=== PATIENT | male | born 1995 | race African-American/Black ===

== ENCOUNTER 2018-03-05 21:39 | Inpatient (IN) ==
--- NOTE | 2018-03-06 03:39 | ED ---
HPI General Chief complaint: Psychiatric Symptoms Stated complaint: Chest Pain Time Seen by Provider: 03/06/18 03:34 Source: patient Mode of arrival: ambulatory Limitations: no limitations History of Present Illness HPI narrative: 22-year-old male with history of depression and anxiety presents emergency department voluntarily for psychiatric evaluation. Patient was found this evening by his with a knife to his chest. He was ready to kill himself. She stopped him and brought him to the emergency department. Patient states he has had a lot of life stressors lately. His daughter was taken away from him. He lost his grandmother. He feels like he has nobody to turn to. He wakes up not wanting to live. He smokes marijuana. He denies any other illicit drug use. He has no other symptoms to report. Related Data Home Medications Medication Instructions Recorded Confirmed bupropion HCl [Wellbutrin SR] 150 mg PO BID 03/06/18 03/06/18 buspirone 5 mg PO DAILY 03/06/18 03/06/18 mirtazapine [Remeron] 15 mg PO DAILY 03/06/18 03/06/18 Allergies Allergy/AdvReac Type Severity Reaction Status Date / Time divalproex sodium Allergy Itching Verified 03/06/18 03:21 [[facility] Review of Systems ROS: all other systems reviewed are negative PMFSH Medical History Medical History No significant past surgical history (Acute) Anxiety (Acute) Insomnia (Acute) Depression (Acute) Social History Social History Substance History: Active Abuse Second Hand Smoke Exposure: Yes Smoking Status: Heavy tobacco smoker Tobacco Type: Cigarettes How Often Do You Have a Drink Containing Alcohol: Never Recent Travel in [place] within the Last 8 Weeks: No Recent Out of Country Travel within the Last 8 Weeks: No Substance Abuse Detail Marijuana: Substance Use Status: Active Route Used Substance Abuse: Inhalation Reason for Use: Calm Down and Sleep Immunization History Tetanus Immunization: >5 Years Hx Influenza Vaccine This Season: No Exam Narrative Exam Narrative: GENERAL: Well-nourished male patient, in no acute distress SKIN: Focused skin assessment warm/dry. HEAD: Atraumatic. Normocephalic. EYES: Pupils equal and round. No scleral icterus. No injection or drainage. ENT: No nasal bleeding or discharge. Mucous membranes pink and moist. NECK: Trachea midline. No JVD. CARDIOVASCULAR: Regular rate and rhythm. No murmur appreciated. RESPIRATORY: No accessory muscle use. Clear to auscultation. Breath sounds equal bilaterally. GASTROINTESTINAL: Abdomen soft, non-tender, nondistended. Hepatic and splenic margins not palpable. MUSCULOSKELETAL: No obvious deformities. No clubbing. No cyanosis. No edema. NEUROLOGICAL: Awake and alert. No obvious cranial nerve deficits. Motor grossly within normal limits. Normal speech. PSYCHIATRIC: Flat affect, depressed mood Course Initial Documented Vital Signs Temperature 98 F 03/05/18 21:52 Pulse Rate 80 03/05/18 21:52 Respiratory Rate 16 03/05/18 21:52 Blood Pressure 133/74 03/05/18 21:52 Pulse Oximetry 100 03/05/18 21:52 Last Documented Vital Signs Temperature 98 F 03/05/18 21:52 Pulse Rate 80 03/05/18 21:52 Respiratory Rate 16 03/06/18 03:25 Blood Pressure 133/74 03/05/18 21:52 Pulse Oximetry 100 03/05/18 21:52 Medical Decision Making TIFFANIE Attestation TIFFANIE supervised visit: Yes MDM Narrative Medical decision making narrative: 22-year-old male presents emergency department voluntarily for psychiatric evaluation. Patient has been having active suicidal thoughts with a near attempt tonight. This was stopped by his . He has no physical injury to his body. Lab work is ordered for medical clearance. Patient wants help at this time and he will remains voluntary. Pending no acute lab abnormality, patient is medically cleared to undergo psychiatric screening for further evaluation and disposition. Mental health screening discussed with the patient. Psychiatric screen ordered. Medical Screen Exam Complete: Yes Emergency Medical Condition: Yes Differential Diagnosis Differential Diagnosis: Disorder versus adjustment reaction disorder Discharge Plan Discharge Disposition Patient Disposition: 30 Still Patient Discharge Condition Condition: Stable Discharge Details Diagnosis: Depression with suicidal ideation Physicians Team ED Provider: Diane Sargent ED Midlevel Provider: Marce Tapia Rxs /Orders / Referrals /Forms Prescriptions: No Action buspirone 5 mg Tablet 5 mg PO DAILY RF: 0 bupropion HCl [Wellbutrin SR] 150 mg Tablet Extended Release 12 Hr 150 mg PO BID RF: 0 mirtazapine [Remeron] 15 mg Tablet 15 mg PO DAILY RF: 0 Discharge Interventions Interventions: Vital Signs Last Done: 03/06/18 03:25 Status ED Status: With Doctor
[2018-03-06 03:56] LABS: Baso % (Auto) 0.8 % (0.0-2.0); Eos # (Auto) 0.2 th/mm3 (0.0-0.4); Eos % (Auto) 3.3 % (0.0-4.0); Hemoglobin 13.9 gm/dL (13.0-17.0); Lymph % (Auto) 34.7 % (9.0-44.0); Mean Corpuscular Hemoglobin 26.4 pg (27.0-34.0); Mean Platelet Volume 8.9 fL (7.0-11.0); Mono # (Auto) 0.8 th/mm3 (0.0-0.9); Mono % (Auto) 13.3 % (0.0-8.0); Neut # (Auto) 2.8 th/mm3 (1.8-7.7); Neut % (Auto) 47.9 % (16.0-70.0); Platelet Count 250 th/mm3 (150-450); Red Blood Count 5.25 mil/mm3 (4.50-5.90); Red Cell Distribution Width 13.6 % (11.6-17.2); White Blood Count 5.8 th/mm3 (4.0-11.0)
[2018-03-06 04:04] LABS: Amphetamine Screen,Urine Neg (Neg); Barbiturate Screen,Urine Neg (Neg); Cannabinoid Screen,Urine Pos (Neg); Cocaine Screen,Urine Neg (Neg)
[2018-03-06 04:08] LABS: Opiate Screen,Urine Neg (Neg)
[2018-03-06 04:11] LABS: Anion Gap 7 meq/L (5-15); Blood Urea Nitrogen 15 mg/dL (7-18); Calcium 8.8 mg/dL (8.5-10.1); Carbon Dioxide 27.6 meq/L (21.0-32.0); Chloride 106 meq/L (98-107); Glomerular Filtration Rate 74 mL/min (>89); Glucose,Random 91 mg/dL (74-106); Potassium 3.9 meq/L (3.5-5.1); Sodium 141 meq/L (136-145)
[2018-03-06] MEDS ORDERED: Aluminum/Magnesium/Simethacone Susp 30 ML UDC PO PRN (12:18)
[2018-03-06] MEDS ORDERED: Bisacodyl 10 MG Supp RECTAL PRN (12:18)
[2018-03-06] MEDS ORDERED: Acetaminophen 325 MG Tablet PO PRN (12:18)
--- NOTE | 2018-03-06 14:14 | ED ---
HPI - Psych - General Source: patient Mode of arrival: ambulatory Limitations: no limitations - History of Present Illness MD complaint: suicidal ideation, feels depressed Onset (ago): month(s) Duration: constant, getting worse History of same: Yes Relieving factors: medication Exacerbating factors: medication Associated psychiatric symptoms: depression, suicidal ideation Associated symptoms: denies other symptoms - General Chief Complaint: Psychiatric Symptoms Stated Complaint: Chest Pain Time Seen by Provider: 03/06/18 12:07 - History of Present Illness HPI Narrative: This is a 22 year old , -Mal[place]ian male who presents voluntarily to this facility after making suicidal statements and holding a knife to his chest. He is previously unknown to the psychiatric department at this facility. Reviewed electronic medical record, labs, discussed case with staff. Toxicology screen is positive for cannabinoids. Patient was evaluated and D 46. He was found sleeping soundly. Upon awakening he is alert and oriented 4. His speech is clear, logical, organized, of normal john and volume. He continues to endorse suicidal ideation homicidal ideation auditory and visual hallucinations. When asked if he had a plan he merely responds, "the police took my knife". His mood does seem depressed and his affect is flat. There is no indication of internal stimulation or thought blocking. I can not elicit any delusional material. He is neither psychotic nor manic at this time. He interacts appropriately throughout the interview. Patient reports that he lives with his and is currently unemployed. He reports that he completed the 10th grade. He denies owning any firearms and states he has been incarcerated with the longest being for 2 years. His father has a history of bipolar and his uncle committed suicide. He states that he previously attempted suicide by overdose approximately 1 year ago. He has history of self harming particularly by cutting although, he reports he has not cut in quite a while now. He reports that he smokes approximately 1 pack per day of cigarettes, denies drinking alcohol, but states that he does use cannabinoids. According to this patient has had some recent external stressors which included the of his grandmother approximately a year ago and a custody issue with his daughter. He denied having any mental health diagnoses or previous treatment however, his medication reconciliation seems to tell a different story. He does report he has been depressed for approximately 6 months now. (Suyapa Ace) - Related Data Home Medications Medication Instructions Recorded Confirmed bupropion HCl [Wellbutrin SR] 150 mg PO BID 03/06/18 03/06/18 buspirone 5 mg PO DAILY 03/06/18 03/06/18 mirtazapine [Remeron] 15 mg PO DAILY 03/06/18 03/06/18 Allergies Allergy/AdvReac Type Severity Reaction Status Date / Time divalproex sodium Allergy Itching Verified 03/06/18 03:21 [From Depak[facility]] Review of Systems All other systems reviewed negative except as stated in HPI PMFSH - History History Provided By: Patient - Medical History Medical History: Medical History (Last Reviewed 03/06/18 @ 14:42 by JESSICA Duncan) No significant past surgical history (Acute) Anxiety (Acute) Insomnia (Acute) Depression (Acute) - Tobacco History Second Hand Smoke Exposure: Yes Tobacco Use In Past 30 Days: Yes Smoking Status: Heavy tobacco smoker Tobacco Type: Cigarettes - Alcohol History How Often Do You Have a Drink Containing Alcohol: Never - Substance Use History Substance History: Active Abuse - Substance Use Type Marijuana Status: Active Route Used: By Mouth Frequency: "MONTHLY" Reason for Use: Get High - Travel History Recent Travel in the [place] Within the Last 8 Weeks: No Recent Travel Out of the Country Within the Last 8 Weeks: No - Immunization History Tetanus Immunization: Unsure Hx Influenza Vaccine This Season: No Psychiatric History - Psychiatric History Psychiatric Treatment History: History of Community Mental Health Treatment History of Inpatient Treatment: No Firearms in Home: No - Psychiatric History Patient is currently prescribed multiple psychotropic medications. (Suy[place] Ace) - Legal History Previous history of incarcerations. (Suyapa Ace) - Family Psychiatric History Reports that his dad is diagnosed bipolar and that his uncle committed suicide. (Suyapa Ace) Physical Exam - General Limitations: no limitations General appearance: alert, in no apparent distress - Neurological Exam Neurological exam: Present: alert, oriented X3 - Psychiatric Psychiatric exam: Present: depressed, flat affect Mental Status Examination Appearance: Appropriate, Well dressed/well groomed Consciousness: Alert Orientation: x4 Motor Activity: Normal gait Speech: Unremarkable Language: Adequate Fund of Knowledge: Adequate Attention and Concentration: Adequate Memory: Unremarkable Mood: Sad Affect: Sad, Flat Thought Process & Associations: Intact, Logical Thought Content: Appropriate Hallucination Type: None Delusion Type: None Suicidal Ideation: Yes Suicidal Plan: Yes Suicidal Intention: No Homicidal Ideation: No Homicidal Plan: No Homicidal Intention: No Insight: Fair Judgment: Adequate Initial Documented Vital Signs Temperature 98 F 03/05/18 21:52 Pulse Rate 80 03/05/18 21:52 Respiratory Rate 16 03/05/18 21:52 Blood Pressure 133/74 03/05/18 21:52 Pulse Oximetry 100 03/05/18 21:52 Last Documented Vital Signs Temperature 98.5 F 03/06/18 13:19 Pulse Rate 73 03/06/18 13:19 Respiratory Rate 18 03/06/18 13:19 Blood Pressure 142/90 H 03/06/18 13:19 Pulse Oximetry 96 03/06/18 13:19 MDM - Psych - Diagnosis (1) Depression Status: Acute (2) Depression with suicidal ideation Status: Acute - Lab Data Result diagrams: 03/06/18 03:45 03/06/18 03:45 - MDM Narrative Medical decision making narrative: Given that this patient continues to endorse suicidal ideation, his family history, his current psychiatric treatment, and the presence of several external stressors I will be admitting him to a locked inpatient unit for further evaluation and treatment as deemed necessary. He has signed in voluntarily. Additionally, he has signed med consents to continue his current psychotropics. (Suyapa Ace) - Lab Data Lab Results 03/06/18 03/06/18 03/06/18 Range/Units 03:45 03:45 03:45 WBC 5.8 (4.0-11.0) th/mm3 RBC 5.25 (4.50-5.90) mil/mm3 Hgb 13.9 (13.0-17.0) gm/dL Hct 42.0 (39.0-51.0) % MCV 80.0 (80.0-100.0) fL MCH 26.4 L (27.0-34.0) pg MCHC 33.0 (32.0-36.0) % RDW 13.6 (11.6-17.2) % Plt Count 250 (150-450) th/mm3 MPV 8.9 (7.0-11.0) fL Neut % (Auto) 47.9 (16.0-70.0) % Lymph % (Auto) 34.7 (9.0-44.0) % Barbour % (Auto) 13.3 H (0.0-8.0) % Eos % (Auto) 3.3 (0.0-4.0) % Baso % (Auto) 0.8 (0.0-2.0) % Neut # (Auto) 2.8 (1.8-7.7) th/mm3 Lymph # (Auto) 2.0 (1.0-4.8) th/mm3 [place]bour # (Auto) 0.8 (0.0-0.9) th/mm3 Eos # (Auto) 0.2 (0.0-0.4) th/mm3 Baso # (Auto) 0.0 (0.0-0.2) th/mm3 WBC Differential . Differential Comment Auto diff final Sodium 141 (136-145) meq/L Potassium 3.9 (3.5-5.1) meq/L Chloride 106 (98-107) meq/L Carbon Dioxide 27.6 (21.0-32.0) meq/L Anion Gap 7 (5-15) meq/L BUN 15 (7-18) mg/dL Creatinine 1.23 (0.60-1.30) mg/dL Estimated GFR 74 L (>89) mL/min Random Glucose 91 (74-106) mg/dL Calcium 8.8 (8.5-10.1) mg/dL TSH 1.770 (0.358-3.740) uIU/mL Urine Opiates Screen Neg (Neg) Ur Barbiturates Screen Neg (Neg) Ur Amphetamines Screen Neg (Neg) U Benzodiazepines Scrn Neg (Neg) Urine Cocaine Screen Neg (Neg) U Cannabinoids Screen Pos H (Neg) Serum Alcohol Less than 3 (0-5) mg/dL
[2018-03-06] MEDS ORDERED: Senna/Docusate Sodium 8.6/50 MG Tablet PO SCH (21:00)
[2018-03-06] MEDS: buPROPion 150 MG 12 HR Tablet PO SCH (21:09)
[2018-03-07] MEDS ORDERED: Mirtazapine 15 MG Tablet PO SCH (09:00)
[2018-03-07] MEDS: buPROPion 150 MG 12 HR Tablet PO SCH ×2 (09:55→21:16)
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
[2018-03-08] MEDS: buPROPion 150 MG 12 HR Tablet PO SCH ×2 (09:04→21:00)
--- NOTE | 2018-03-08 13:03 | P.PNPSY ---
Subjective Chief Complaint: Depression Remarks: Patient seen and examined with nurse. Chart reviewed. Case discussed with nursing staff. No behavioral issues noted. On my examination today, the patient reports that he is feeling somewhat less depressed but still feels like he is in a "black hole." Denies SI or HI. Denies hallucinations. Sleeping okay by his report. Denies side effects from medications. No physical complaints. Intake and Output 03/08/18 03/08/18 03/08/18 06:59 14:59 22:59 Intake Total 480 / 480 Balance 480 / 480 Intake: Oral 480 / 480 Labs reviewed. No new labs. Review of Systems All other systems reviewed negative except as stated in HPI Mental Status Examination Appearance: Appropriate Consciousness: Alert Orientation: x4 Motor Activity: Normal gait Speech: Unremarkable Language: Adequate Fund of Knowledge: Adequate Attention and Concentration: Adequate Memory: Unremarkable (Grossly intact on clinical exam) Mood: Sad Affect: Sad Thought Process & Associations: Intact Thought Content: Appropriate Hallucination Type: None Delusion Type: None Suicidal Ideation: No Suicidal Plan: No Suicidal Intention: No Homicidal Ideation: No Homicidal Plan: No Homicidal Intention: No Mental Status Exam Remarks: Insight and judgment are fair Assessment and Plan - Assessment (1) Depression Code(s): F32.9 - Major depressive disorder, single episode, unspecified Status : Acute (2) Cannabis abuse Code(s): F12.10 - Cannabis abuse, uncomplicated Status: Acute - Plan Plan: Patient to receive increased dose of Remeron tonight. Continue other psychotropic medications as ordered. Continue to monitor on the inpatient unit. Continue other care as ordered. Justification for Continued Inpatient Stay: Risk for decompensation in less restrictive environment. Discharge Planning: Pending psychiatric stabilization. Request Healthcare Surrogate/Guardian Advocate?: No (1) Depression Qualifiers: Depression Type: major depressive disorder Major depression recurrence: recurrent Active/Remission status: currently active Major depression episode severity: severe Psychotic features: without psychotic features Qualified Code (s): F33.2 - Major depressive disorder, recurrent severe without psychotic features
[2018-03-08] MEDS: Mirtazapine 15 MG Tablet PO SCH (21:01)
[2018-03-09] MEDS: buPROPion 150 MG 12 HR Tablet PO SCH ×2 (09:20→21:40)
--- NOTE | 2018-03-09 13:03 | P.PNPSY ---
Subjective Chief Complaint: Depression Remarks: Patient seen and examined with nurse and counselor. Chart reviewed. Case discussed with nursing staff. No behavioral issues noted overnight. Patient noted to be social on the unit. On my examination today, the patient presents with a much brighter affect. He says that he slept well and has been attending groups. He says that he feels like he is "back on track." He complains of some mild residual anxiety, and we discussed titrating his BuSpar to target this. He denies any SI or HI. Denies any AVH. Denies side effects from medications. No physical complaints. Hopeful for discharge tomorrow. Intake and Output 03/09/18 03/09/18 03/09/18 06:59 14:59 22:59 Other: Weight 109.8 kg Labs reviewed. No new labs. Review of Systems All other systems reviewed negative except as stated in HPI Mental Status Examination Appearance: Appropriate Consciousness: Alert Orientation: x4 Motor Activity: Normal gait, Other (No motor abnormalities noted) Speech: Unremarkable Language: Adequate Fund of Knowledge: Adequate Attention and Concentration: Adequate Memory: Unremarkable (Grossly intact on clinical exam) Mood: Sad (Improving) Affect: Appropriate (Full and reactive) Thought Process & Associations: Intact Thought Content: Appropriate Hallucination Type: None Delusion Type: None Suicidal Ideation: No Suicidal Plan: No Suicidal Intention: No Homicidal Ideation: No Homicidal Plan: No Homicidal Intention: No Insight: Adequate Judgment: Adequate Assessment and Plan - Assessment (1) Adjustment disorder with depressed mood Code(s): F43.21 - Adjustment disorder with depressed mood Status: Acute (2) Cannabis abuse Code(s): F12.10 - Cannabis abuse, uncomplicated Status: Acute - Plan Plan: With the benefit of further observation, it seems as though patient's presenting dysphoria more likely results from adjustment disorder than from major depressive episode, and I have adjusted the diagnostic schema accordingly. I will titrate the patient's BuSpar to 10 mg twice daily to target residual anxiety. Continue other psychotropics as ordered. Continue to monitor on the inpatient unit. Continue other medications and care as ordered. Justification for Continued Inpatient Stay: Medication changes Discharge Planning: Possible discharge tomorrow, Tuesday Request Healthcare Surrogate/Guardian Advocate?: No
[2018-03-09 18:58] VITALS: BP 159/70; PULSE 90; TEMP 98.5; O2SAT 97
[2018-03-09] MEDS: Mirtazapine 15 MG Tablet PO SCH (21:40)
[2018-03-10 05:40] VITALS: RESP 20
[2018-03-10] MEDS: buPROPion 150 MG 12 HR Tablet PO SCH (09:48)
--- NOTE | 2018-03-10 12:36 | P.TTN ---
- Patient Problems Problems: 1. Discharge planning 2. Medication compliance 3. Knowledge deficit 4. Lack of coping skills - Progress Toward Goals Provider Present: Dr. Stella Ni Psychiatric Counselors Present: Constanza Henry LCSW (Pt. being discharged home today.) Group Spec/RT/OT/COLLINS Present: KARINA Reynoso (Pt. attends most groups) - Documentation Teaching Recipient: Patient
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
== END 2018-03-10 17:45 | disposition home or self-care (01) ==
LOC: NEPD 21:39 → NEDA 03-06 12:18 → H260 03-06 13:12
PROVIDERS: ADMIT Psychiatry & Neurology Psychiatry; ATTEND Psychiatry & Neurology Psychiatry

== ENCOUNTER 2018-03-11 01:20 | Inpatient (IN) ==
[2018-03-11] MEDS ORDERED: Sod Chloride 0.9% Inj 1,000 ML IV.SIG ONE (01:31)
--- NOTE | 2018-03-11 01:31 | ED ---
HPI General Chief Complaint: Overdose Stated Complaint: Medical Time Seen by Provider: 03/11/18 01:24 Source: patient Mode of arrival: wheelchair Limitations: no limitations History of Present Illness HPI Narrative: 22-year-old male presents to the emergency department from the cafeteria in the hospital as an emergency response team patient who was found in the cafeteria to be drowsy after reportedly witnessed him taking approximately 30 sleep aid pills approximately 5 minutes prior to the ERT being called. Patient presents with a box of sleep aid #8 50 mg tablets and then reportedly another box of 8-16 diphenhydramine either 25 or 50 mg tablet. Patient admits to being depressed and suicidal. Patient reportedly was discharged from the [place] psychiatric unit at approximately 5 PM today and has been wandering about the hospital and cafeteria until just now. Patient reportedly was admitted yesterday after voluntarily presenting for psychiatric assistance for depression after reportedly found him holding a knife to his chest wanting to harm himself. No prescriptions with the patient for depression available. MD complaint: suicidal ideation Onset (ago): minute(s) Duration: getting worse History of same: Yes Relieving factors: none Exacerbating factors: none Context: significant life stressor Associated psychiatric symptoms: depression Associated symptoms: denies other symptoms Treatments prior to arrival: none If self harm: admits thoughts of self harm, has plan and has acted on plan ( overdose) Details of plan: Patient with depression and intentionally ingested approximately 16-30 diphenhydramine tablets 25-50 mg. Related Data Home Medications Medication Instructions Recorded Confirmed buspirone 5 mg PO DAILY 03/06/18 03/11/18 mirtazapine [Remeron] 15 mg PO DAILY 03/06/18 03/11/18 Previous Rx's Medication Instructions Recorded bupropion HCl [Wellbutrin SR] 150 mg PO BID 15 Days #30 tab 03/10/18 buspirone 10 mg PO BID 15 Days #30 tab 03/10/18 mirtazapine 30 mg PO HS 15 Days #30 tab 03/10/18 Allergies Allergy/AdvReac Type Severity Reaction Status Date / Time divalproex sodium Allergy Itching Verified 03/06/18 03:21 [From Depakote] Review of Systems ROS: all other systems reviewed are negative [facility] Medical History Medical History No significant past surgical history (Acute) Anxiety (Acute) Insomnia (Acute) Depression (Acute) ACL injury tear (Acute) Family History Family History Other Family history of breast cancer Family history of diabetes mellitus Social History Social History Substance History: Active Abuse Second Hand Smoke Exposure: Yes Smoking Status: Current every day smoker Tobacco Type: Cigarettes How Often Do You Have a Drink Containing Alcohol: Monthly or less Exam Narrative Exam Narrative: GENERAL: Well-nourished, well-developed patient. E: 4, V: 5 M: 6 SKIN: Focused skin assessment warm/dry. HEAD: Normocephalic. EYES: No scleral icterus. No injection or drainage. NECK: Supple, trachea midline. No JVD or lymphadenopathy. CARDIOVASCULAR: Regular rate and rhythm without murmurs, gallops, or rubs. RESPIRATORY: Breath sounds equal bilaterally. No accessory muscle use. GASTROINTESTINAL: Abdomen soft, non-tender, nondistended. MUSCULOSKELETAL: No cyanosis, or edema. BACK: Nontender without obvious deformity. No CVA tenderness. Course Initial Documented Vital Signs Pulse Rate 85 03/11/18 01:50 Last Documented Vital Signs Temperature 98.3 F 03/15/18 06:00 Pulse Rate 64 03/15/18 06:00 Respiratory Rate 18 03/15/18 06:00 Blood Pressure 119/57 L 03/15/18 06:00 Pulse Oximetry 97 03/15/18 06:00 Medical Decision Making MDM Narrative Medical decision making narrative: 22-year-old depressed male with intentional overdose of diphenhydramine. Unclear as to ingestion appears to be recent. Patient placed on monitoring manager IV access obtained patient given bolus of normal saline and poison control notified. Nunez act signed by me. At 3 AM patient is awake no altered mentation no tachycardia no hypertension no tachypnea no hyperthermia resting comfortably no increased drowsiness or somnolence. Patient is identified to have acute renal insufficiency and is given additional IV fluid bolus. At 6 am patient is medically cleared Medical Screen Exam Complete: Yes Emergency Medical Condition: Yes Differential Diagnosis Differential Diagnosis: Depression mood disorder bipolar disorder suicidal ideation intentional overdose Medical Records Medical records reviewed: Yes I reviewed the patient's medical records. Lab Data Result diagrams: 03/11/18 01:40 03/11/18 01:40 Lab Results 03/11/18 03/11/18 03/11/18 Range/Units 01:40 01:40 01:40 WBC 6.2 (4.0-11.0) th/mm3 RBC 5.18 (4.50-5.90) mil/mm3 Hgb 13.4 (13.0-17.0) gm/dL Hct 41.4 (39.0-51.0) % MCV 80.1 (80.0-100.0) fL MCH 25.8 L (27.0-34.0) pg MCHC 32.2 (32.0-36.0) % RDW 13.5 (11.6-17.2) % Plt Count 280 (150-450) th/mm3 MPV 9.1 (7.0-11.0) fL Neut % (Auto) 50.2 (16.0-70.0) % Lymph % (Auto) 38.0 (9.0-44.0) % [place] % (Auto) 8.8 H (0.0-8.0) % Eos % (Auto) 2.1 (0.0-4.0) % Baso % (Auto) 0.9 (0.0-2.0) % Neut # (Auto) 3.1 (1.8-7.7) th/mm3 Lymph # (Auto) 2.4 (1.0-4.8) th/mm3 [place] # (Auto) 0.5 (0.0-0.9) th/mm3 Eos # (Auto) 0.1 (0.0-0.4) th/mm3 Baso # (Auto) 0.1 (0.0-0.2) th/mm3 WBC Differential . Differential Comment Auto diff final PT (9.8-11.6) sec INR Ratio APTT (24.3-30.1) sec Puncture Site Patient Temperature O2 Saturation (90-100) % ABG pH (7.380-7.420) ABG pCO2 (38-42) mmHg ABG pO2 (61-120) mmHg ABG HCO3 (22-26) mmol/L ABG O2 Content (12.0-20.0) Vol % ABG Base Excess (-2-2) mmol/L ABG Methemoglobin (0-2) % Joey Test Hemoglobin (12.0-16.0) G/DL Carboxyhemoglobin (0-4) % O2 Delivery Device Inspired O2 % Critical Value Sodium 139 (136-145) meq/L Potassium 3.9 (3.5-5.1) meq/L Chloride 102 (98-107) meq/L Carbon Dioxide 27.9 (21.0-32.0) meq/L Anion Gap 9 (5-15) meq/L BUN 16 (7-18) mg/dL Creatinine 1.55 H (0.60-1.30) mg/dL Estimated GFR 68 L (>89) mL/min Random Glucose 112 H (74-106) mg/dL Calcium 8.8 (8.5-10.1) mg/dL Total Bilirubin 0.1 L (0.2-1.0) mg/dL AST 36 (15-37) U/L ALT 56 (12-78) U/L Alkaline Phosphatase 118 H (45-117) U/L Troponin I Less than 0.02 L (0.02-0.05) ng/mL Total Protein 8.8 H (6.4-8.2) g/dL Albumin 4.0 (3.4-5.0) g/dL Lipase 93 (73-393) U/L TSH 3.490 (0.358-3.740) uIU/mL Urine Color (Yellw/Straw) Urine Clarity (Clear) Urine pH (5.0-8.5) Ur Specific [place] (1.002-1.035) Urine Protein (Neg-Trace) mg/dL Urine Glucose (UA) (Negative) mg/dL Urine Ketones (Negative) mg/dL Urine Occult Blood (Negative) Urine Nitrate (Negative) Urine Bilirubin (Negative) Urine Urobilinogen (Less than 2) mg/dL Ur Leukocyte Esterase (Negative) Urine RBC (0-3) /hpf Urine WBC (0-5) /hpf Urine Mucus (Occasional) /lpf Ur Microscopic Review Salicylates 1.8 L (2.8-20.0) mg/dL Urine Opiates Screen (Neg) Acetaminophen Less than 2.0 L (10.0-30.0) mcg/mL Ur Barbiturates Screen (Neg) Ur Amphetamines Screen (Neg) U Benzodiazepines Scrn (Neg) Urine Cocaine Screen (Neg) U Cannabinoids Screen (Neg) Serum Alcohol Less than 3 (0-5) mg/dL 03/11/18 03/11/18 03/11/18 Range/Units 01:40 01:59 06:00 WBC (4.0-11.0) th/mm3 RBC (4.50-5.90) mil/mm3 Hgb (13.0-17.0) gm/dL Hct (39.0-51.0) % MCV (80.0-100.0) fL MCH (27.0-34.0) pg MCHC (32.0-36.0) % RDW (11.6-17.2) % Plt Count (150-450) th/mm3 MPV (7.0-11.0) fL Neut % (Auto) (16.0-70.0) % Lymph % (Auto) (9.0-44.0) % [place] % (Auto) (0.0-8.0) % Eos % (Auto) (0.0-4.0) % Baso % (Auto) (0.0-2.0) % Neut # (Auto) (1.8-7.7) th/mm3 Lymph # (Auto) (1.0-4.8) th/mm3 [place] # (Auto) (0.0-0.9) th/mm3 Eos # (Auto) (0.0-0.4) th/mm3 Baso # (Auto) (0.0-0.2) th/mm3 WBC Differential Differential Comment PT 10.0 (9.8-11.6) sec INR 1.0 Ratio APTT 30.6 H (24.3-30.1) sec Puncture Site Left radial Patient Temperature 98.6 O2 Saturation 97 (90-100) % ABG pH 7.44 H (7.380-7.420) ABG pCO2 38 (38-42) mmHg ABG pO2 106 (61-120) mmHg ABG HCO3 25 (22-26) mmol/L ABG O2 Content 18.3 (12.0-20.0) Vol % ABG Base Excess 1.3 (-2-2) mmol/L ABG Methemoglobin 0.7 (0-2) % Joey Test Present Hemoglobin 13.4 (12.0-16.0) G/DL Carboxyhemoglobin 0.9 (0-4) % O2 Delivery Device Room air Inspired O2 21 % Critical Value No Sodium (136-145) meq/L Potassium (3.5-5.1) meq/L Chloride (98-107) meq/L Carbon Dioxide (21.0-32.0) meq/L Anion Gap (5-15) meq/L BUN (7-18) mg/dL Creatinine (0.60-1.30) mg/dL Estimated GFR (>89) mL/min Random Glucose (74-106) mg/dL Calcium (8.5-10.1) mg/dL Total Bilirubin (0.2-1.0) mg/dL AST (15-37) U/L ALT (12-78) U/L Alkaline Phosphatase (45-117) U/L Troponin I (0.02-0.05) ng/mL Total Protein (6.4-8.2) g/dL Albumin (3.4-5.0) g/dL Lipase (73-393) U/L TSH (0.358-3.740) uIU/mL Urine Color Straw (Yellw/Straw) Urine Clarity Clear (Clear) Urine pH 7.0 (5.0-8.5) Ur Specific [place] 1.006 (1.002-1.035) Urine Protein Negative (Neg-Trace) mg/dL Urine Glucose (UA) Negative (Negative) mg/dL Urine Ketones Negative (Negative) mg/dL Urine Occult Blood Negative (Negative) Urine Nitrate Negative (Negative) Urine Bilirubin Negative (Negative) Urine Urobilinogen Less than 2 (Less than 2) mg/dL Ur Leukocyte Esterase Negative (Negative) Urine RBC Less than 1 (0-3) /hpf Urine WBC Less than 1 (0-5) /hpf Urine Mucus Few H (Occasional) /lpf Ur Microscopic Review Not Reportable Salicylates (2.8-20.0) mg/dL Urine Opiates Screen (Neg) Acetaminophen (10.0-30.0) mcg/mL Ur Barbiturates Screen (Neg) Ur Amphetamines Screen (Neg) U Benzodiazepines Scrn (Neg) Urine Cocaine Screen (Neg) U Cannabinoids Screen (Neg) Serum Alcohol (0-5) mg/dL 03/11/18 Range/Units 06:00 WBC (4.0-11.0) th/mm3 RBC (4.50-5.90) mil/mm3 Hgb (13.0-17.0) gm/dL Hct (39.0-51.0) % MCV (80.0-100.0) fL MCH (27.0-34.0) pg MCHC (32.0-36.0) % RDW (11.6-17.2) % Plt Count (150-450) th/mm3 MPV (7.0-11.0) fL Neut % (Auto) (16.0-70.0) % Lymph % (Auto) (9.0-44.0) % [place] % (Auto) (0.0-8.0) % Eos % (Auto) (0.0-4.0) % Baso % (Auto) (0.0-2.0) % Neut # (Auto) (1.8-7.7) th/mm3 Lymph # (Auto) (1.0-4.8) th/mm3 [place] # (Auto) (0.0-0.9) th/mm3 Eos # (Auto) (0.0-0.4) th/mm3 Baso # (Auto) (0.0-0.2) th/mm3 WBC Differential Differential Comment PT (9.8-11.6) sec INR Ratio APTT (24.3-30.1) sec Puncture Site Patient Temperature O2 Saturation (90-100) % ABG pH (7.380-7.420) ABG pCO2 (38-42) mmHg ABG pO2 (61-120) mmHg ABG HCO3 (22-26) mmol/L ABG O2 Content (12.0-20.0) Vol % ABG Base Excess (-2-2) mmol/L ABG Methemoglobin (0-2) % Joey Test Hemoglobin (12.0-16.0) G/DL Carboxyhemoglobin (0-4) % O2 Delivery Device Inspired O2 % Critical Value Sodium (136-145) meq/L Potassium (3.5-5.1) meq/L Chloride (98-107) meq/L Carbon Dioxide (21.0-32.0) meq/L Anion Gap (5-15) meq/L BUN (7-18) mg/dL Creatinine (0.60-1.30) mg/dL Estimated GFR (>89) mL/min Random Glucose (74-106) mg/dL Calcium (8.5-10.1) mg/dL Total Bilirubin (0.2-1.0) mg/dL AST (15-37) U/L ALT (12-78) U/L Alkaline Phosphatase (45-117) U/L Troponin I (0.02-0.05) ng/mL Total Protein (6.4-8.2) g/dL Albumin (3.4-5.0) g/dL Lipase (73-393) U/L TSH (0.358-3.740) uIU/mL Urine Color (Yellw/Straw) Urine Clarity (Clear) Urine pH (5.0-8.5) Ur Specific [place] (1.002-1.035) Urine Protein (Neg-Trace) mg/dL Urine Glucose (UA) (Negative) mg/dL Urine Ketones (Negative) mg/dL Urine Occult Blood (Negative) Urine Nitrate (Negative) Urine Bilirubin (Negative) Urine Urobilinogen (Less than 2) mg/dL Ur Leukocyte Esterase (Negative) Urine RBC (0-3) /hpf Urine WBC (0-5) /hpf Urine Mucus (Occasional) /lpf Ur Microscopic Review Salicylates (2.8-20.0) mg/dL Urine Opiates Screen Neg (Neg) Acetaminophen (10.0-30.0) mcg/mL Ur Barbiturates Screen Neg (Neg) Ur Amphetamines Screen Neg (Neg) U Benzodiazepines Scrn Neg (Neg) Urine Cocaine Screen Neg (Neg) U Cannabinoids Screen Neg (Neg) Serum Alcohol (0-5) mg/dL Imaging Data Radiologist's impression: Chest X-Ray 03/11/18 01:31 CONCLUSION: No evidence of acute cardiopulmonary disease. Hand X-Ray 03/14/18 00:00 CONCLUSION: 1. No evidence of fracture. 2. Possible angulation of the DIP joints of the third digit, only appreciated on one view. Hand X-Ray 03/14/18 00:00 CONCLUSION: 1. No fracture seen. 2. Mild angulation at the DIP joint of the third digit, without evidence of dislocation or significant arthropathy. Abdomen/Bladder Ultrasound 03/15/18 00:00 CONCLUSION: 1. Unremarkable renal ultrasound examination. 2. Specifically, no sonographic evidence for obstructive uropathy. ECG Data EKG Prior to Arrival: No Prior ECG tracings: not available for review Interpretation: EKG: Normal sinus rhythm rate 90 early repolarization changes no injury pattern noted I Dr. Cardoza responded to a Code Ellis in J pod approximately 0845. Patient is irate, threatening, standing at the door, he was demanding to be discharged and at that time psychiatrist is informing patient he will be admitted. He became angry. He is trying to reason his way out of the situation but staff are concerned for his and others safety. I have ordered 2mg ativan and 10 haldol IM. Patient was able to be talked down by Dr. Craig. No medication intervention was done. I have cancelled my orders. Further management by Dr. Craig. Discharge Plan Discharge Disposition Patient Disposition: 30 Still Patient Discharge Condition Condition: Stable Discharge Details Diagnosis: Depression with suicidal ideation, Intentional overdose of drug in tablet form Physicians Team ED Provider: Diane Sargent Primary Care Provider: Primary Care Iona Antonio Attending Provider: Nile iN Other Providers: Utilizer,[facility] ; [employer] Status ED Status: Left Department Discharge Information Discharge Date/Time: 03/12/18 09:31
[2018-03-11] MEDS ORDERED: Sod Chloride 0.9% Inj 1,000 ML IV.SIG SCH (01:45)
[2018-03-11 02:04] LABS: Baso # (Auto) 0.1 th/mm3 (0.0-0.2); Baso % (Auto) 0.9 % (0.0-2.0); Eos # (Auto) 0.1 th/mm3 (0.0-0.4); Eos % (Auto) 2.1 % (0.0-4.0); Hematocrit 41.4 % (39.0-51.0); Hemoglobin 13.4 gm/dL (13.0-17.0); Lymph # (Auto) 2.4 th/mm3 (1.0-4.8); Mean Corpuscular HGB Conc 32.2 % (32.0-36.0); Mean Corpuscular Hemoglobin 25.8 pg (27.0-34.0); Mean Corpuscular Volume 80.1 fL (80.0-100.0); Mean Platelet Volume 9.1 fL (7.0-11.0); Mono # (Auto) 0.5 th/mm3 (0.0-0.9); Mono % (Auto) 8.8 % (0.0-8.0); Neut # (Auto) 3.1 th/mm3 (1.8-7.7); Neut % (Auto) 50.2 % (16.0-70.0); Platelet Count 280 th/mm3 (150-450); Red Blood Count 5.18 mil/mm3 (4.50-5.90); Red Cell Distribution Width 13.5 % (11.6-17.2); White Blood Count 6.2 th/mm3 (4.0-11.0)
[2018-03-11 02:16] LABS: ABG Base Excess 1.3 mmol/L (-2-2); ABG PCO2 38 mmHg (38-42); ABG PO2 106 mmHg (61-120)
[2018-03-11 02:22] LABS: Activated Partial Thrombo Time 30.6 sec (24.3-30.1)
[2018-03-11 02:32] LABS: Anion Gap 9 meq/L (5-15)
--- NOTE | 2018-03-11 02:33 | XR ---
EXAM DATE: 03/11/2018 2:24 AM EDT AGE/SEX: 22 years / Male INDICATIONS: General illness. CLINICAL DATA: This is the patient's initial encounter. Patient reports that signs and symptoms have been present for 1 day and indicates a pain score of 0/10. MEDICAL/SURGICAL HISTORY: None. None. COMPARISON: No prior exams available for comparison. FINDINGS: A single AP view of the chest demonstrates the lungs to be symmetrically aerated without evidence of mass, infiltrate or effusion. The cardiomediastinal contours are unremarkable. Osseous structures a re intact. CONCLUSION: No evidence of acute cardiopulmonary disease. Electronically signed by: Andrei Carmichael MD 03/11/2018 2:32 AM EDT
[2018-03-11 02:44] LABS: Alanine Aminotransferase 56 U/L (12-78); Alkaline Phosphatase 118 U/L (45-117); Aspartate Aminotransferase 36 U/L (15-37); Blood Urea Nitrogen 16 mg/dL (7-18); Calcium 8.8 mg/dL (8.5-10.1); Carbon Dioxide 27.9 meq/L (21.0-32.0); Chloride 102 meq/L (98-107); Glomerular Filtration Rate 68 mL/min (>89); Glucose,Random 112 mg/dL (74-106); Lipase 93 U/L (73-393); Potassium 3.9 meq/L (3.5-5.1); Sodium 139 meq/L (136-145); Total Protein 8.8 g/dL (6.4-8.2)
[2018-03-11 06:59] LABS: Bilirubin,Urine Negative (Negative); Clarity,Urine Clear (Clear); Color,Urine Straw (Yellw/Straw); Glucose,Urine (UA) Negative (Negative); Leukocyte Esterase,Urine Negative (Negative); Mucus,Urine Few /lpf (Occasional); Nitrite,Urine Negative (Negative); Specific Gravity,Urine 1.006 (1.002-1.035)
[2018-03-11 08:58] LABS: Amphetamine Screen,Urine Neg (Neg); Barbiturate Screen,Urine Neg (Neg); Cannabinoid Screen,Urine Neg (Neg); Cocaine Screen,Urine Neg (Neg)
[2018-03-11 09:02] LABS: Opiate Screen,Urine Neg (Neg)
--- NOTE | 2018-03-11 14:19 | ECG ---
Date Performed: 03/11/2018 Time Performed: 01:25:05 PTAGE: 22 years EKG: Sinus rhythm EARLY REPOLARIZATION BORDERLINE ECG Since the previous tracing, no significant change noted NO PREVIOUS TRACING DOCTOR: Tracy Goodman Interpretating Date/Time 03/11/2018 14:25:12
[2018-03-12] MEDS ORDERED: Haloperidol Inj 5 MG/ML Ampul IM ONE (08:42)
[2018-03-12] MEDS ORDERED: Haloperidol Inj 5 MG/ML Ampul ONE (08:43)
[2018-03-12] MEDS ORDERED: Bisacodyl 10 MG Supp RECTAL PRN (08:58)
[2018-03-12] MEDS ORDERED: Aluminum/Magnesium/Simethacone Susp 30 ML UDC PO PRN (08:58)
[2018-03-12] MEDS: Senna/Docusate Sodium 8.6/50 MG Tablet PO SCH ×2 (09:30→20:18)
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
[2018-03-13] MEDS: Senna/Docusate Sodium 8.6/50 MG Tablet PO SCH (08:16)
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
--- NOTE | 2018-03-14 11:46 | P.PNPSY ---
Subjective Remarks: Patient seen and examined with nurse. Chart reviewed. Case discussed with nursing staff. Patient refusing to sign consent for medications. Refusing vital signs. Case discussed in treatment team. On my examination today, the patient is seclusive to room. Affect is dysphoric. He continues to refuse to consent for medications. I did caution him that he may experience decompensation of psychiatric illness if he continues to refuse to consent for medications. I did receive a message from the patient's indicating that she would like her to be released, but she does not have a phone and so it is not possible for me to discuss the matter with her. Patient does say that if were to call back, patient would be okay with me speaking with . He denies SI or HI, although it is unclear whether he is reliable to contract for safety. No physical complaints. Vital Signs Temp Pulse Resp BP Pulse Ox 03/13/18 17:44 98.7 F 67 16 134/71 97 Labs reviewed. No new labs. Review of Systems All other systems reviewed negative except as stated in HPI (Limitation: Minimalcooperative) Mental Status Examination Appearance: Appropriate Consciousness: Alert Orientation: x4 Motor Activity: Other (No abnormal motor movements noted) Speech: Unremarkable Language: Adequate Fund of Knowledge: Adequate Attention and Concentration: Adequate Memory: Unremarkable Mood: Oppositional Affect: Other (Remains dysphoric) Thought Process & Associations: Intact Thought Content: Appropriate Hallucination Type: None Delusion Type: None Suicidal Ideation: No (Unreliable to contract for safety) Suicidal Plan: No Suicidal Intention: No Homicidal Ideation: No Homicidal Plan: No Homicidal Intention: No Insight: Poor Judgment: Poor Assessment and Plan - Assessment (1) Adjustment disorder with mixed disturbance of emotions and conduct Code(s): F43.25 - Adjustment disorder with mixed disturbance of emotions and conduct Status: Acute (2) Antisocial personality disorder Code(s): F60.2 - Antisocial personality disorder Status: Suspected - Plan Plan: Continue to monitor for impairments in safety. Continue to encourage compliance with psychotropic medications. Continue other care as ordered. Justification for Continued Inpatient Stay: Monitoring for impairment in safety Discharge Planning: Pending outcome of observation Request Healthcare Surrogate/Guardian Advocate?: No
[2018-03-14 17:38] VITALS: RESP 18
[2018-03-14] MEDS: Acetaminophen 325 MG Tablet PO PRN (22:40)
--- NOTE | 2018-03-14 23:39 | XR ---
EXAM DATE: 03/14/2018 12:00 AM EDT AGE/SEX: 22 years / Male INDICATIONS: Left hand, 3rd digit pain after jamming finger. CLINICAL DATA: This is the patient's initial encounter. Patient reports that signs and symptoms have been present for 1 day and indicates a pain score of 4/10. MEDICAL/SURGICAL HISTORY: None. None. COMPARISON: No prior exams available for comparison. FINDINGS: Bony structures are intact and in normal alignment. Osseous density is normal. Soft tissues are unre markable. The distal mack are intact. On the oblique view, there is questionable angulation of the DIP joint of the third digit which cannot be confirmed on the other 2 views. No radiopaque foreign ja dies seen. CONCLUSION: 1. No evidence of fracture. 2. Possible angulation of the DIP joints of the third digit, only appreciated on one view. Electronically signed by: Stas Colón MD 03/14/2018 11:38 PM EDT
--- NOTE | 2018-03-14 23:40 | XR ---
EXAM DATE: 03/14/2018 12:00 AM EDT AGE/SEX: 22 years / Male INDICATIONS: Right hand, 3rd digit pain after jamming finger. CLINICAL DATA: This is the patient's initial encounter. Patient reports that signs and symptoms have been present for 1 day and indicates a pain score of 4/10. MEDICAL/SURGICAL HISTORY: None. None. COMPARISON: No prior exams available for comparison. FINDINGS: Bony structures are intact and in normal alignment. Mild angulation of the DIP joints of the third di git without evidence of dislocation or significant arthropathy. Osseous density is normal. Soft tiss ues are unremarkable. No radiopaque foreign bodies seen. CONCLUSION: 1. No fracture seen. 2. Mild angulation at the DIP joint of the third digit, without evidence of dislocation or significa nt arthropathy. Electronically signed by: Stas Colón MD 03/14/2018 11:38 PM EDT
--- NOTE | 2018-03-15 08:53 | P.CON ---
History of Present Illness Consult date: 03/15/18 Requesting Physician: Andrei Gomes Reason for Consult: Hand trauma Primary Care Provider: No Primary Care Physician Chief Complaint: No medical complaint. History of Present Illness: This is a pleasant 22 y/o Male who came to ER from Cafeteria after seen by emergency response team patient who was found in the cafeteria to be drowsy after reportedly witnessed him taking approximately 30 sleep aid pills approximately 5 minutes prior to the ERT being called. Patient presents with a box of sleep aid #8 50 mg tablets and then reportedly another box of 8- 16 diphenhydramine either 25 or 50 mg tablet. Patient admits to being depressed and suicidal. Patient reportedly was discharged from the [facility] psychiatric unit at approximately 5 PM today and has been wandering about the hospital until what happened. today asked for consult due to hand trauma. no fracture seen on X ray and no complaint at this time. Review of Systems All other systems reviewed negative except as stated in HPI PMFSH - History History Provided By: Patient - Medical History Medical History: Medical History (Last Updated 03/15/18 @ 13:45 by Pj Staples MD) No significant past surgical history (Acute) Anxiety (Acute) Insomnia (Acute) Depression (Acute) ACL injury tear - Family History Family History: Family History (Last Updated 03/15/18 @ 13:45 by Pj Staples MD) Other Family history of breast cancer Family history of diabetes mellitus - Tobacco History Second Hand Smoke Exposure: Yes Tobacco Use In Past 30 Days: Yes Smoking Status: Current every day smoker Tobacco Type: Cigarettes - Alcohol History How Often Do You Have a Drink Containing Alcohol: Monthly or less - Substance Use History Substance History: Active Abuse - Immunization History Tetanus Immunization: Unsure Hx Influenza Vaccine This Season: No Medications and Allergies Active Medications: Active Medications Acetaminophen (Tylenol) 650 mg PO Q4H PRN PRN Reason: PAIN 1-10 Last Admin: 03/14/18 22:40 Dose: 650 mg Al Hydrox/Mg Hydrox/Simethicone (Mag-Al Plus Susp Liq) 30 ml PO Q6H PRN PRN Reason: DYSPEPSIA Al Hydroxide/Mg Hydroxide (Milk Of Magnesia Liq) 30 ml PO Q12H PRN PRN Reason: Mild Constipation Sodium Chloride (Ns Inj) 1,000 mls @ 0 mls/hr IV.SIG BOLUS BECKA Nicotine (Habitrol 21 Mg Patch.24 Hr) 1 patch T-DERMAL DAILY [facility] Last Admin: 03/14/18 08:46 Dose: Not Given Patch Removal (Remove Old Patch) 1 each T-DERMAL DAILY [facility] Last Admin: 03/14/18 08:46 Dose: Not Given Allergies Allergy/AdvReac Type Severity Reaction Status Date / Time divalproex sodium Allergy Itching Verified 03/06/18 03:21 [From Depakote] Home Medications Medication Instructions Recorded Confirmed Type buspirone 5 mg PO DAILY 03/06/18 03/11/18 History mirtazapine [Remeron] 15 mg PO DAILY 03/06/18 03/11/18 History Physical Exam Vital signs: Vital Signs 03/14/18 17:36 03/15/18 06:00 Temperature 97.5 F L 98.3 F Pulse Rate 71 64 Respiratory Rate 18 18 Blood Pressure 158/72 H 119/57 L Pulse Oximetry 98 97 Intake & Output 03/14/18 03/15/18 03/15/18 18:59 06:59 18:59 Intake Total 360 / 360 240 / 240 Balance 360 / 360 240 / 240 Intake: Oral 360 / 360 240 / 240 Narrative: GENERAL: This is a well-nourished, well-developed patient, in no apparent distress. CARDIOVASCULAR: Regular rate and rhythm without murmurs, gallops, or rubs. RESPIRATORY: Clear to auscultation. Breath sounds equal bilaterally. No wheezes , rales, or rhonchi. GASTROINTESTINAL: Abdomen soft, non-tender, nondistended. Normal active bowel sounds MUSCULOSKELETAL: Extremities without clubbing, cyanosis, or edema. NEURO: Alert & Oriented x4 to person, place, time, situation. Moves all ext x4 Assessment and Plan - Plan 1. Adjustment Disorder with mixed disturbance of emotions and conduct continue Psychiatry management 2. Antisocial personality disorder 3. Major Depression with intentional overdose of diphenhydramine. was prabhakar acted. 4. Right hand trauma no evidence of fracture on x ray, as per patient he has a deviation of his distal phalanx on third finger on right hand. DVT prophylaxis not needed. No further recommendations okay to discharge from Medicine standpoint. Code Status: Full code. Discussed Condition With: Patient and nurse. Discharge Planning: as per attending physician.
--- NOTE | 2018-03-15 10:33 | P.PNPSY ---
Subjective Remarks: Patient seen and examined with counselor. Chart reviewed. Case discussed with nurse and counselor. I was notified overnight as the physician on-call that the patient had punched the window and paniagua because he was upset that his could not visit. I ordered the patient placed with a 1:1 sitter and ordered appropriate imaging to rule-out fracture. I did consider transfer to the high acuity unit, but since there are 2 male peers on the high acuity unit (who cannot presently be moved) with whom patient has been in conflict, it seemed most prudent to observe the patient on the lower acuity unit overnight. He reportedly had no further behavioral disturbance. On my exam, patient takes no ownership of his behavior. He blames this behavior on the hospital for retaining him, and his insight into need for hospitalization is poor. He continues to deny SI. Of his self-injurious behavior last night he says "that ain't harming myself." Affect is irritable, although he does maintain behavioral control. I have examined the patient's hands and note that they are without deformity, lesion or swelling. He continues to refuse medications. No physical complaints. Vital Signs Temp Pulse Resp BP Pulse Ox 03/15/18 06:00 98.3 F 64 18 119/57 L 97 03/14/18 17:36 97.5 F L 71 18 158/72 H 98 Intake and Output 03/14/18 03/15/18 03/15/18 22:59 06:59 14:59 Intake Total 360 / 360 480 / 480 Balance 360 / 360 480 / 480 Intake: Oral 360 / 360 480 / 480 Labs reviewed. No new labs. Impressions Hand X-Ray 03/14/18 00:00 CONCLUSION: 1. No evidence of fracture. 2. Possible angulation of the DIP joints of the third digit, only appreciated on one view. Hand X-Ray 03/14/18 00:00 CONCLUSION: 1. No fracture seen. 2. Mild angulation at the DIP joint of the third digit, without evidence of dislocation or significant arthropathy. Hand x-rays negative for fracture. Review of Systems All other systems reviewed negative except as stated in HPI (Limitation: uncooperative) Mental Status Examination Appearance: Appropriate Consciousness: Alert Orientation: x4 Motor Activity: Other (No motor abnormalities noted) Speech: Unremarkable Language: Adequate Fund of Knowledge: Adequate Attention and Concentration: Adequate Memory: Unremarkable Mood: Oppositional Affect: Irritable Thought Process & Associations: Intact Thought Content: Appropriate Hallucination Type: None Delusion Type: None Suicidal Ideation: No (Unreliable to contract for safety) Suicidal Plan: No Suicidal Intention: No Homicidal Ideation: No Homicidal Plan: No Homicidal Intention: No Insight: Poor Judgment: Poor Assessment and Plan - Assessment (1) Adjustment disorder with mixed disturbance of emotions and conduct Code(s): F43.25 - Adjustment disorder with mixed disturbance of emotions and conduct Status: Acute (2) Antisocial personality disorder Code(s): F60.2 - Antisocial personality disorder Status: Suspected - Plan Plan: Behavioral dysregulation exhibited yesterday only adds to my concern regarding patient's risk for impulsive self-injury in less restrictive setting. I have suggested to patient that we make this a focus of treatment, but he continues to decline any and all medications. Appreciate hospitalist input. Continue one -to-one for behavioral redirection and monitoring for impairments in safety. Continue other care as ordered. Justification for Continued Inpatient Stay: Monitoring for impairment in safety. Risk for decompensation in less restrictive environment. Discharge Planning: [place] [facility] tomorrow Request Healthcare Surrogate/Guardian Advocate?: No
--- NOTE | 2018-03-15 14:34 | US ---
EXAM DATE: 03/15/2018 12:00 AM EDT AGE/SEX: 22 years / Male INDICATIONS: Increased lab values. CLINICAL DATA: This is the patient's initial encounter. Patient reports that signs and symptoms have been present for 1 day and indicates a pain score of 0/10. MEDICAL/SURGICAL HISTORY: . Anxiety.Depression.Insomnia.ACL tear. None. COMPARISON: No prior exams available for comparison. MEASUREMENTS: Right Kidney:__9.5 x 4.7 x 4.5 cm Left Kidney:__9.6 x 4.4 x 5.9 cm FINDINGS: Right Kidney: Normal echotexture and cortical thickness. No mass or hydronephrosis. Left Kidney: Normal echotexture and cortical thickness. No mass or hydronephrosis. Bladder: Within normal limits given the degree of distension. Other: None. CONCLUSION: 1. Unremarkable renal ultrasound examination. 2. Specifically, no sonographic evidence for obstructive uropathy. Electronically signed by: Pineda Hanson MD 03/15/2018 2:32 PM EDT
[2018-03-15 18:12] VITALS: BP 146/72; PULSE 104; TEMP 98.4; O2SAT 95
[2018-03-15] MEDS: Acetaminophen 325 MG Tablet PO PRN (22:18)
[2018-03-16] MEDS: Acetaminophen 325 MG Tablet PO PRN (08:54)
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
== END 2018-03-16 14:10 | disposition left against medical advice (07) ==
LOC: NEPC 01:20 → NEDA 03-12 09:01 → H270 03-12 09:31 → H260 03-13 13:19
PROVIDERS: ADMIT Psychiatry & Neurology Psychiatry; ATTEND Psychiatry & Neurology Psychiatry